=== PATIENT | female | born 1970 | race Caucasian/White ===

== ENCOUNTER 2022-02-10 22:05 | Observation (INO) | payer OTHER ==
[2022-02-10] MEDS ORDERED: SODIUM CHLORIDE 0.9% 500 ML INFUS.BAG IV ONE (22:33)
[2022-02-10] MEDS ORDERED: ACETAMINOPHEN 1000 MG/100 ML BAG IVPB ONE (22:33)
[2022-02-10] MEDS ORDERED: METOCLOPRAMIDE HCL INJECTION 10 MG/2 ML VIAL IVPB ONE (22:46)
[2022-02-10 22:55] LABS: BASO % 0.7 % (0-2.0); EOS % 3.8 % (0-4.5); HEMATOCRIT 26.8 % (32.4-45.2); HEMOGLOBIN 8.5 GM/dL (10.7-15.3); LYMPH % 33.7 % (8-40); MCHC 31.9 g/dl (32.0-36.0); MEAN CELL VOLUME 62.8 fl (80-96); MEAN PLT VOLUME 8.1 fl (7.5-11.1); MONO % 8.3 % (3.8-10.2); NEUT % 53.5 % (42.8-82.8); PLATELET COUNT 292 10^3/uL (134-434); RBC 4.26 M/mm3 (3.60-5.2); RDW 19.3 % (11.6-15.6); WHITE BLOOD COUNT 6.8 K/mm3 (4.0-10.0)
[2022-02-10 23:02] LABS: INR 1.03 (0.83-1.09); PROTHROMBIN TIME (PATIENT) 11.8 SEC (9.7-13.0)
[2022-02-10 23:04] LABS: ACTIVATED PTT 25.7 SECONDS (25.2-36.5)
[2022-02-10 23:14] LABS: ANISOCYTOSIS 2+; MACROCYTOSIS 1+
[2022-02-10 23:23] LABS: CALCIUM 8.5 mg/dL (8.5-10.1)
[2022-02-10 23:24] LABS: ALBUMIN 4.1 g/dl (3.4-5.0); BLOOD UREA NITROGEN 15.7 mg/dL (7-18)
[2022-02-10 23:27] LABS: CREATININE 0.6 mg/dL (0.55-1.3)
[2022-02-10 23:28] LABS: BILIRUBIN,TOTAL 0.3 mg/dL (0.2-1); TOT PROT 7.8 g/dl (6.4-8.2)
[2022-02-11] MEDS ORDERED: ASPIRIN 325 MG TABLET PO ONE (00:04)
[2022-02-11] MEDS ORDERED: ASPIRIN 325 MG TABLET ONE (00:20)
[2022-02-11 02:02] LABS: URINE APPEARANCE CLEAR; URINE BILIRUBIN NEGATIVE (NEGATIVE); URINE COLOR YELLOW; URINE GLUCOSE (UA) NEGATIVE (NEGATIVE); URINE KETONE NEGATIVE (NEGATIVE); URINE LEUK ESTERASE NEGATIVE (NEGATIVE); URINE NITRITE NEGATIVE (NEGATIVE); URINE PROTEIN NEGATIVE (NEGATIVE); URINE UROBILINOGEN 0.2 mg/dL (0.2-1.0)
[2022-02-11] MEDS ORDERED: POLYETHYLENE GLYCOL (HEALTHYLAX) 3350 17 GM PACKET PO PRN (04:31)
[2022-02-11] MEDS ORDERED: ACETAMINOPHEN 1000 MG/100 ML BAG IVPB PRN (04:37)
[2022-02-11 07:34] LABS: CALCIUM 8.1 mg/dL (8.5-10.1)
[2022-02-11 07:35] LABS: BLOOD UREA NITROGEN 10.7 mg/dL (7-18)
[2022-02-11 07:38] LABS: CREATININE 0.6 mg/dL (0.55-1.3)
[2022-02-11 07:42] LABS: BASO % 0.3 % (0-2.0); EOS % 1.2 % (0-4.5); HEMATOCRIT 25.4 % (32.4-45.2); LYMPH % 13.2 % (8-40); MCHC 31.5 g/dl (32.0-36.0); MEAN CELL VOLUME 63.2 fl (80-96); MEAN PLT VOLUME 8.7 fl (7.5-11.1); MONO % 7.6 % (3.8-10.2); NEUT % 77.7 % (42.8-82.8); PLATELET COUNT 271 10^3/uL (134-434); RBC 4.01 M/mm3 (3.60-5.2); RDW 19.6 % (11.6-15.6); WHITE BLOOD COUNT 6.5 K/mm3 (4.0-10.0)
[2022-02-11 08:01] LABS: MCH 19.9 pg (25.7-33.7)
[2022-02-11] MEDS ORDERED: ASPIRIN 81 MG CHEWABLE TABLETS ONE (09:32)
[2022-02-11] MEDS: ASPIRIN 81 MG CHEWABLE TABLETS PO SCH (10:00)
[2022-02-11] MEDS ORDERED: ENOXAPARIN NA (PORCINE) 40 MG/0.4 ML DISP.SYRIN SQ ONE (14:12)
[2022-02-12 01:44] VITALS: BMI 23.7
[2022-02-12 08:27] LABS: HEMATOCRIT 25.8 % (32.4-45.2); HEMOGLOBIN 8.2 GM/dL (10.7-15.3); MCH 20.1 pg (25.7-33.7); MCHC 31.6 g/dl (32.0-36.0); MEAN CELL VOLUME 63.6 fl (80-96); MEAN PLT VOLUME 8.8 fl (7.5-11.1); PLATELET COUNT 264 10^3/uL (134-434); RBC 4.06 M/mm3 (3.60-5.2); RDW 19.3 % (11.6-15.6); WHITE BLOOD COUNT 4.4 K/mm3 (4.0-10.0)
[2022-02-12 08:41] LABS: BLOOD UREA NITROGEN 11.5 mg/dL (7-18); CALCIUM 8.4 mg/dL (8.5-10.1)
[2022-02-12 08:42] LABS: ALBUMIN 3.5 g/dl (3.4-5.0)
[2022-02-12 08:43] LABS: CREATININE 0.6 mg/dL (0.55-1.3)
[2022-02-12 08:46] LABS: BILIRUBIN,TOTAL 0.6 mg/dL (0.2-1); TOT PROT 6.9 g/dl (6.4-8.2)
[2022-02-12] MEDS: ENOXAPARIN NA (PORCINE) 40 MG/0.4 ML DISP.SYRIN SQ SCH (09:49)
[2022-02-12] MEDS: ASPIRIN 81 MG CHEWABLE TABLETS PO SCH (09:49)
[2022-02-12] MEDS ORDERED: ENOXAPARIN NA (PORCINE) 40 MG/0.4 ML DISP.SYRIN SQ SCH (10:00)
[2022-02-12] MEDS ORDERED: FERRIC CARBOXYMALTOSE 750 MG/15 ML VIAL IVPB ONE ×2 (14:57)
[2022-02-12] MEDS ORDERED: IRON SUCROSE IVPB ONE (17:00)
[2022-02-12] MEDS ORDERED: SODIUM CHLORIDE IVPB ONE (17:00)
[2022-02-13] MEDS: ASPIRIN 81 MG CHEWABLE TABLETS PO SCH (09:12)
[2022-02-13] MEDS: ENOXAPARIN NA (PORCINE) 40 MG/0.4 ML DISP.SYRIN SQ SCH (09:13)
[2022-02-13 14:36] VITALS: PULSE 81
[2022-02-13 14:43] VITALS: BP 123/78; TEMP 98
== END 2022-02-13 18:51 | disposition home or self-care (01) ==
LOC: JER 22:05 → JERBED 02-11 03:50 → INTOOBSV 02-11 03:50 → J4W 02-11 19:24
PROVIDERS: ADMIT Hospitalist; ATTEND Internal Medicine
PROC: 3E023GC Introduction of Other Therapeutic Substance into Muscle, Percutaneous Approach (ICD-10-PCS; principal; 2022-02-11)
PROC: 3E033GC Introduction of Other Therapeutic Substance into Peripheral Vein, Percutaneous Approach (ICD-10-PCS; 2022-02-11)
PROC: 3E033NZ Introduction of Analgesics, Hypnotics, Sedatives into Peripheral Vein, Percutaneous Approach (ICD-10-PCS; 2022-02-11)
PROC: 3E0337Z Introduction of Electrolytic and Water Balance Substance into Peripheral Vein, Percutaneous Approach (ICD-10-PCS; 2022-02-11)
DX: R47.81 Slurred speech (principal); R29.810 Facial weakness; R51.9 Headache, unspecified; R20.0 Anesthesia of skin; H53.8 Other visual disturbances
CPT/HCPCS: 36415; 70450-TC; 70496-TC; 70498-TC; 70551-TC; 71046-TC-FY; 76830-TC; 80048; 80053; 80061; 81003; 82248; 82728; 83010; 83036; 83540; 83550; 83615; 84439; 84443; 84484; 84703; 85025; 85027; 85045; 85610; 85730; 86850; 86900; 86901; 93005; 93010; 96365; 96372; 96375; 99285-25; C9803-CS; G0378; J1756; Q9967; U0003; U0005

== ENCOUNTER 2022-02-26 10:13 | Day surgery (SDC) | payer OTHER ==
[2022-02-26] MEDS ORDERED: IRON SUCROSE INJECTION 300 MG in SODIUM CHLORIDE 250 ML IVPB ONE (11:00)
[2022-02-26 11:04] VITALS: BP 127/72; PULSE 87; TEMP 98.9
== END 2022-02-26 13:15 | disposition home or self-care (01) ==
LOC: J7W 10:13 → JINFUSION 10:13
PROVIDERS: ATTEND Internal Medicine
DX: D50.9 Iron deficiency anemia, unspecified (principal)
CPT/HCPCS: 96365; J1756